=== PATIENT | male | born 1950 | race Caucasian/White ===

== ENCOUNTER 2019-11-30 15:01 | Emergency (ER) | payer OTHER ==
[2019-11-30 15:16] VITALS: BP 133/66; PULSE 88
[2019-11-30] MEDS ORDERED: Methocarbamol 500 MG Tab ONE (15:35)
[2019-11-30] MEDS ORDERED: Thiamine 200 MG/2 ML MDV ONE (15:36)
[2019-11-30] MEDS ORDERED: Acetaminophen 325 MG Tab ONE (15:39)
[2019-11-30] MEDS ORDERED: Ibuprofen 600 MG Tab ONE (15:40)
[2019-11-30] MEDS ORDERED: Triamcinolone Acetonide 40 MG/ML 1 ML MDV ONE (15:42)
[2019-11-30] MEDS ORDERED: Methocarbamol 500 MG Tab PO ONE (15:48)
--- NOTE | 2019-11-30 15:51 | EDM.PDOC ---
ED HPI GENERAL MEDICAL PROBLEM - General Chief Complaint: Upper Extremity Injury/Pain Stated Complaint: RIGHT SHOULDER PAIN Time Seen by Provider: 11/30/19 15:21 Source of Information: Reports: Patient, RN - History of Present Illness INITIAL COMMENTS - FREE TEXT/NARRATIVE: Samir presents to the emergency department today for evaluation of chronic right shoulder discomfort. He states that reaching out and AB duct to get against any sort of resistance, causes him a lot of pain. He has had this for a number of years. He denies any recent injury. He mainly came in for an x-ray , and is requesting that this be sent to his primary which is the [place]. He adamantly denies any exertional basis to his symptoms. He was hoping to get a cortisone injection, because he had had one before and this worked quite well for him. He denies any recent head trauma, neck pain, change in motor strength or apparent sensation of his entire right upper extremity. He has no fevers or other joint involvement at this time. Right Shoulder Pain Score (Numeric/FACES): 5 - Related Data Allergies Allergy/AdvReac Type Severity Reaction Status Date / Time No Known Allergies Allergy Verified 02/02/16 18:39 Home Meds: Home Meds Clopidogrel Bisulfate [Plavix] 75 mg PO BEDTIME 02/03/16 [History] Diclofenac Sodium [IJD: Diclofenac Sodium] 75 mg PO BID 02/03/16 [History] Docusate Sodium/Sennosides [Senna Plus] 1 each PO BID 02/03/16 [History] Ezetimibe [Zetia] 10 mg PO DAILY 02/03/16 [History] Ferrous Sulfate 325 mg PO DAILY 02/03/16 [History] Fish Oil/[place]-3 Fatty Acids [Fish Oil] 1 each PO BID 02/03/16 [History] Metoprolol Succinate 25 mg PO DAILY 02/03/16 [History] Nitroglycerin [Nitrostat] 0.4 mg SL ASDIRECTED PRN 02/03/16 [History] Omeprazole 20 mg PO BID 02/03/16 [History] Terazosin HCl [Terazosin] 2 mg PO BEDTIME 02/03/16 [History] atorvaSTATin Calcium [Atorvastatin Calcium] 80 mg PO BEDTIME 02/03/16 [History] hydrALAZINE HCl [Hydralazine HCl] 20 mg PO TID 02/03/16 [History] traZODone HCl [Trazodone HCl] 400 mg PO BEDTIME 02/03/16 [History] Past Medical History HEENT History: Reports: Impaired Vision Cardiovascular History: Reports: Bypass, High Cholesterol, Hypertension Genitourinary History: Reports: Prostate Disorder Musculoskeletal History: Reports: Osteoarthritis Hematologic History: Reports: Anemia - Infectious Disease History Infectious Disease History: Reports: Chicken Pox - Past Surgical History GI Surgical History: Reports: Appendectomy Social & Family History - Family History Family Medical History: Noncontributory Review of Systems - Review of Systems Review Of Systems: Comprehensive ROS is negative, except as noted in HPI. ED EXAM, GENERAL - Physical Exam Exam: See Below General Appearance: Alert, WD/WN, No Apparent Distress Eye Exam: Bilateral Eye: EOMI, Normal Inspection Nose: Normal Inspection Head: Atraumatic, Normocephalic Neck: Normal Inspection, Supple, Non-Tender, Full Range of Motion Respiratory/Chest: No Respiratory Distress, Lungs Clear, Normal Breath Sounds Cardiovascular: Regular Rate, Rhythm, No Gallop, No Murmur, No Rub GI/Abdominal: Normal Bowel Sounds, Soft, Non-Tender Back Exam: Normal Inspection, Muscle Spasm (right trapezius without any nuchal signs at all.). No: CVA Tenderness (R), CVA Tenderness (L) Extremities: Normal Inspection, Normal Range of Motion, Limited Range of Motion (On an active basis, he is noted to brace himself with his right shoulder AB ducted. I palpated the entire shoulder girdle, and there did not appear to be any underlying bony tenderness apparent. After obtaining consent, he was provided with a subacromial injection in the usual fashion under sterile precautions.) Course - Vital Signs Last Recorded V/S: Last Vital Signs Temp 98 F 11/30/19 16:57 Pulse 88 11/30/19 15:06 Resp 18 11/30/19 15:06 BP 133/66 11/30/19 15:06 Pulse Ox 98 11/30/19 15:06 - Orders/Labs/Meds Orders: Active Orders 24 hr Category Date Time Status Cooling Warming Measures [RC] ASDIRECTED Care 11/30/19 16:22 Active EKG Documentation Completion [RC] ASDIRECTED Care 11/30/19 15:59 Active EKG Documentation Completion [RC] ASDIRECTED Care 11/30/19 17:32 Ordered Immobilizer [RC] ASDIRECTED Care 11/30/19 16:22 Active Shoulder Comp Rt [CR] Stat Exams 11/30/19 16:47 Taken Ice Pack [Ice Therapy] [OM.PC] Routine Oth 11/30/19 16:22 Ordered EKG 12 Lead [EK] Routine Ther 11/30/19 15:58 Ordered EKG 12 Lead [EK] Stat Ther 11/30/19 17:32 Ordered Labs: Laboratory Tests 11/30/19 11/30/19 11/30/19 Range/Units 15:53 15:53 15:54 WBC 6.4 (4.0-11.0) K/uL RBC 3.92 L (4.50-6.50) M/uL Hgb 13.0 (13.0-18.0) g/dL Hct 38.2 L (40.0-54.0) % MCV 97 H (76-96) fL MCH 33.2 H (27.0-32.0) pg MCHC 34.0 (31.0-35.0) g/dL RDW 12.3 (11.0-16.0) % Plt Count 156 (150-400) K/uL MPV 10.5 H (6.0-10.0) fL Neut % (Auto) 51.1 (45.0-70.0) % Lymph % (Auto) 35.3 (20.0-40.0) % [place] % (Auto) 10.0 (3.0-10.0) % Eos % (Auto) 3.3 (1.0-5.0) % Baso % (Auto) 0.3 (0.0-0.5) % Neut # (Auto) 3.27 (2.00-7.50) K/uL Lymph # (Auto) 2.26 (1.50-4.00) K/uL [place] # (Auto) 0.64 (0.20-0.80) K/uL Eos # (Auto) 0.21 (0.04-0.40) K/uL Baso # (Auto) 0.02 (0.02-0.10) K/uL Sodium 143 (136-145) mmol/L Potassium 4.1 (3.5-5.1) mmol/L Chloride 105 (98-107) mmol/L Carbon Dioxide 27.6 (21.0-32.0) mmol/L Anion Gap 14.5 (5.0-15.0) mmol/L BUN 12 D (8-26) mg/dL Creatinine 0.96 D (0.70-1.30) mg/dL Est Cr Clr Drug Dosing 76.98 mL/min Estimated GFR (MDRD) > 60 (>60) MLS/MIN BUN/Creatinine Ratio 12.5 (6-25) Glucose 101 H (74-100) mg/dL Hemoglobin A1c (< 5.7) % Calcium 9.0 (8.5-10.1) mg/dL Troponin I 0.142 H* (0.000-0.060) ng/mL B-Natriuretic Peptide 590 H (0-125) pg/mL 11/30/19 11/30/19 Range/Units 15:54 18:06 WBC (4.0-11.0) K/uL RBC (4.50-6.50) M/uL Hgb (13.0-18.0) g/dL Hct (40.0-54.0) % MCV (76-96) fL MCH (27.0-32.0) pg MCHC (31.0-35.0) g/dL RDW (11.0-16.0) % Plt Count (150-400) K/uL MPV (6.0-10.0) fL Neut % (Auto) (45.0-70.0) % Lymph % (Auto) (20.0-40.0) % [place] % (Auto) (3.0-10.0) % Eos % (Auto) (1.0-5.0) % Baso % (Auto) (0.0-0.5) % Neut # (Auto) (2.00-7.50) K/uL Lymph # (Auto) (1.50-4.00) K/uL [place] # (Auto) (0.20-0.80) K/uL Eos # (Auto) (0.04-0.40) K/uL Baso # (Auto) (0.02-0.10) K/uL Sodium (136-145) mmol/L Potassium (3.5-5.1) mmol/L Chloride (98-107) mmol/L Carbon Dioxide (21.0-32.0) mmol/L Anion Gap (5.0-15.0) mmol/L BUN (8-26) mg/dL Creatinine (0.70-1.30) mg/dL Est Cr Clr Drug Dosing mL/min Estimated GFR (MDRD) (>60) MLS/MIN BUN/Creatinine Ratio (6-25) Glucose (74-100) mg/dL Hemoglobin A1c 5.9 H (< 5.7) % Calcium (8.5-10.1) mg/dL Troponin I 0.140 H* (0.000-0.060) ng/mL B-Natriuretic Peptide (0-125) pg/mL Meds: Medications Discontinued Medications Generic Name Dose Route Start Last Admin Trade Name Freq PRN Reason Stop Dose Admin Acetaminophen Confirm 11/30/19 15:39 11/30/19 15:56 Tylenol Administered 11/30/19 15:40 Not Given Dose 650 mg .ROUTE .STK-MED ONE Acetaminophen 650 mg 11/30/19 15:52 11/30/19 15:58 Tylenol PO 11/30/19 15:53 650 mg NOW ONE Administration Aspirin 162 mg 11/30/19 17:30 11/30/19 15:52 Halfprin PO 11/30/19 17:31 162 mg ONETIME ONE Administration Bupivacaine HCl 9 ml 11/30/19 15:59 11/30/19 18:00 Sensorcaine-Mpf 0.5% INJECT 11/30/19 16:00 9 ml ONETIME ONE Administration Ibuprofen Confirm 11/30/19 15:40 11/30/19 15:56 Motrin Administered 11/30/19 15:41 Not Given Dose 600 mg .ROUTE .STK-MED ONE Ibuprofen 600 mg 11/30/19 15:52 11/30/19 15:57 Motrin PO 11/30/19 15:53 600 mg ONETIME ONE Administration Lidocaine Confirm 11/30/19 17:04 11/30/19 17:37 Lidoderm 5% Administered 11/30/19 17:05 Not Given Dose 1,400 mg .ROUTE .STK-MED ONE Methocarbamol Confirm 11/30/19 15:35 11/30/19 15:56 Robaxin Administered 11/30/19 15:36 Not Given Dose 500 mg .ROUTE .STK-MED ONE Methocarbamol 500 mg 11/30/19 15:48 11/30/19 15:58 Robaxin PO 11/30/19 15:49 500 mg ONETIME ONE Administration Thiamine HCl Confirm 11/30/19 15:36 11/30/19 15:48 Vitamin B-1 Administered 11/30/19 15:37 Not Given Dose 200 mg .ROUTE .STK-MED ONE Triamcinolone Acetonide Confirm 11/30/19 15:42 11/30/19 15:56 Kenalog-40 Administered 11/30/19 15:43 Not Given Dose 40 mg .ROUTE .STK-MED ONE Triamcinolone Acetonide 40 mg 11/30/19 15:59 11/30/19 18:00 Kenalog-40 INJECT 11/30/19 16:00 40 mg ONETIME ONE Administration Departure - Departure Time of Disposition: 15:50 Disposition: Home, Self-Care 01 Condition: Good Clinical Impression: Right shoulder pain - Discharge Information Instructions: Shoulder Pain, [id number] Referrals: PCP,None [Primary Care Provider] - Forms: ED Department Discharge Care Plan Goals: Wear immobilizer to right arm as needed for comfort. OT to evaluate and treat as needed. Alternate taking Tylenol and Ibuprofen every 4 hours as needed for pain. May take Robaxin twice daily for pain. Ice packs every hour for 20 minutes as needed. Sepsis Event Note - Evaluation Sepsis Screening Result: No Definite Risk - Focused Exam Vital Signs: Vital Signs Temp Temp Pulse Resp BP Pulse Ox 11/30/19 16:57 98 F 11/30/19 15:06 98.2 F 88 18 133/66 98 Date Exam was Performed: 11/30/19 Time Exam was Performed: 18:35 - My Orders Last 24 Hours: My Active Orders 11/30/19 15:58 EKG 12 Lead [EK] Routine 11/30/19 15:59 EKG Documentation Completion [RC] ASDIRECTED 11/30/19 16:22 Cooling Warming Measures [RC] ASDIRECTED Immobilizer [RC] ASDIRECTED Ice Pack [Ice Therapy] [OM.PC] Routine 11/30/19 16:47 Shoulder Comp Rt [CR] Stat 11/30/19 17:32 EKG Documentation Completion [RC] ASDIRECTED EKG 12 Lead [EK] Stat - Assessment/Plan Last 24 Hours: My Active Orders 11/30/19 15:58 EKG 12 Lead [EK] Routine 11/30/19 15:59 EKG Documentation Completion [RC] ASDIRECTED 11/30/19 16:22 Cooling Warming Measures [RC] ASDIRECTED Immobilizer [RC] ASDIRECTED Ice Pack [Ice Therapy] [OM.PC] Routine 11/30/19 16:47 Shoulder Comp Rt [CR] Stat 11/30/19 17:32 EKG Documentation Completion [RC] ASDIRECTED EKG 12 Lead [EK] Stat
[2019-11-30] MEDS ORDERED: Acetaminophen 325 MG Tab PO ONE (15:52)
[2019-11-30] MEDS ORDERED: Ibuprofen 600 MG Tab PO ONE (15:52)
[2019-11-30] MEDS ORDERED: Bupivacaine 0.5% 10 ML SDV INJECT ONE (15:59)
[2019-11-30] MEDS ORDERED: Triamcinolone Acetonide 40 MG/ML 1 ML MDV INJECT ONE (15:59)
[2019-11-30 16:27] LABS: HEMOGLOBIN A1C 5.9 % (< 5.7)
[2019-11-30] MEDS ORDERED: Lidocaine 5% 700 MG Patch ONE (17:04)
[2019-11-30] MEDS ORDERED: Aspirin 81 MG Tab.EC PO ONE (17:30)
--- NOTE | 2019-12-01 07:30 | CR ---
DATE OF SERVICE: 11/30/19 CLINICAL DATA: pain RIGHT SHOULDER: No priors. There are osteoarthritic changes of the AC joint. No acute fracture or dislocation. No lytic or blastic bone lesions. [id number] MTDD
== END 2019-11-30 18:48 | disposition home or self-care (01) ==
LOC: LB.ED 15:01
DX: M25.511 Pain in right shoulder (principal); E78.00 Pure hypercholesterolemia, unspecified; I10 Essential (primary) hypertension; Z79.899 Other long term (current) drug therapy; D64.9 Anemia, unspecified; Z79.02 Long term (current) use of antithrombotics/antiplatelets
CPT/HCPCS: 36415; 73030-RT; 80048; 83036; 83880; 84484; 85025; 93005; 99283; 99284-25; A9270-GY; J3301; J3490

== ENCOUNTER 2020-09-12 16:20 | Emergency (ER) | payer OTHER ==
[2020-09-12 16:26] VITALS: BP 124/75; PULSE 87
[2020-09-12] MEDS ORDERED: Acetaminophen 325 MG Tab PO ONE (16:37)
--- NOTE | 2020-09-12 16:43 | EDM.PDOC ---
ED HPI GENERAL MEDICAL PROBLEM - General Stated Complaint: INJURY TO WRIST Time Seen by Provider: 09/12/20 16:30 Source of Information: Reports: Patient History Limitations: Reports: No Limitations - History of Present Illness INITIAL COMMENTS - FREE TEXT/NARRATIVE: 70 year old male with PMH of CABG, GERD, HTN, presents to ED after a mechanical fall on the ice. He denies any head injury or any other injury. CMS +. Denies cough, fever, SOB, CP, numbness or tingling. . Onset: Today Improves with: Reports: None Worsens with: Reports: Movement Associated Symptoms: Reports: No Other Symptoms Left Wrist Pain Score (Numeric/FACES): 6 - Related Data Allergies Allergy/AdvReac Type Severity Reaction Status Date / Time No Known Allergies Allergy Verified 09/12/20 16:29 Home Meds: Home Meds Clopidogrel Bisulfate [Plavix] 75 mg PO BEDTIME 02/03/16 [History] Diclofenac Sodium [IJD: Diclofenac Sodium] 75 mg PO BID 02/03/16 [History] Docusate Sodium/Sennosides [Senna Plus] 1 each PO BID 02/03/16 [History] Ezetimibe [Zetia] 10 mg PO DAILY 02/03/16 [History] Ferrous Sulfate 325 mg PO DAILY 02/03/16 [History] Fish Oil/[place]-3 Fatty Acids [Fish Oil] 1 each PO BID 02/03/16 [History] Metoprolol Succinate 25 mg PO DAILY 02/03/16 [History] Nitroglycerin [Nitrostat] 0.4 mg SL ASDIRECTED PRN 02/03/16 [History] Omeprazole 20 mg PO BID 02/03/16 [History] Terazosin HCl [Terazosin] 2 mg PO BEDTIME 02/03/16 [History] atorvaSTATin Calcium [Atorvastatin Calcium] 80 mg PO BEDTIME 02/03/16 [History] hydrALAZINE HCl [Hydralazine HCl] 20 mg PO TID 02/03/16 [History] traZODone HCl [Trazodone HCl] 400 mg PO BEDTIME 02/03/16 [History] Past Medical History HEENT History: Reports: Impaired Vision Cardiovascular History: Reports: Bypass, High Cholesterol, Hypertension Genitourinary History: Reports: Prostate Disorder Musculoskeletal History: Reports: Osteoarthritis Hematologic History: Reports: Anemia - Infectious Disease History Infectious Disease History: Reports: Chicken Pox - Past Surgical History GI Surgical History: Reports: Appendectomy Social & Family History - Family History Family Medical History: No Pertinent Family History - Caffeine Use Caffeine Use: Reports: Coffee, Soda Review of Systems - Review of Systems Review Of Systems: See Below Constitutional: Reports: No Symptoms Eyes: Reports: No Symptoms Ears: Reports: No Symptoms Nose: Reports: No Symptoms Mouth/Throat: Reports: No Symptoms Respiratory: Reports: No Symptoms Cardiovascular: Reports: No Symptoms GI/Abdominal: Reports: No Symptoms Genitourinary: Reports: No Symptoms Musculoskeletal: Reports: Arm Pain Skin: Reports: No Symptoms Neurological: Reports: No Symptoms Psychiatric: Reports: No Symptoms ED EXAM, GENERAL - Physical Exam Exam: See Below Exam Limited By: No Limitations General Appearance: Alert, Mild Distress Ears: Normal External Exam Head: Atraumatic Neck: Normal Inspection, Full Range of Motion Respiratory/Chest: No Respiratory Distress Cardiovascular: Regular Rate, Rhythm Peripheral Pulses: 3+: Radial (L), Radial (R) GI/Abdominal: Non-Tender (Male) Exam: Deferred Rectal (Males) Exam: Deferred Back Exam: Full Range of Motion Extremities: Normal Capillary Refill, Joint Swelling, Arm Pain, Limited Range of Motion (left wrist) Neurological: Alert, Oriented, Normal Cognition, Normal Gait, No Motor/Sensory Deficits Psychiatric: Normal Affect, Normal Mood Skin Exam: Warm, Dry, Intact Lymphatic: No Adenopathy Course - Vital Signs Last Recorded V/S: Last Vital Signs Temp 96.8 F L 09/12/20 16:25 Pulse 87 09/12/20 16:25 Resp 16 09/12/20 16:25 BP 124/75 09/12/20 16:25 Pulse Ox 95 09/12/20 16:25 - Orders/Labs/Meds Orders: Active Orders 24 hr Category Date Time Status Wrist Comp Min 3V Lt [CR] Stat Exams 09/12/20 16:37 Taken Meds: Medications Discontinued Medications Generic Name Dose Route Start Last Admin Trade Name Freq PRN Reason Stop Dose Admin Acetaminophen 650 mg 09/12/20 16:37 09/12/20 16:39 Tylenol PO 09/12/20 16:38 650 mg NOW ONE Administration Acetaminophen Confirm 09/12/20 16:49 09/12/20 16:43 Tylenol Administered 09/12/20 16:50 Not Given Dose 650 mg .ROUTE .STK-MED ONE Departure - Departure Time of Disposition: 17:17 Disposition: 20 Clinical Impression: Wrist fracture, left Qualifiers: Encounter type: initial encounter Fracture type: closed Qualified Code(s): S62.102A - Fracture of unspecified carpal bone, left wrist, initial encounter for closed fracture Fracture of radius Qualifiers: Encounter type: initial encounter Radius location: distal Fracture type: closed Fracture morphology: other fracture Laterality: left Qualified Code(s): S52.592A - Other fractures of lower end of left radius, initial encounter for closed fracture - Discharge Information *PRESCRIPTION DRUG MONITORING PROGRAM REVIEWED*: Not Applicable *COPY OF PRESCRIPTION DRUG MONITORING REPORT IN PATIENT SEVERIANO: Not Applicable Instructions: Wrist Fracture Treated With Immobilization, [id number] Referrals: PCP,None [Primary Care Provider] - Additional Instructions: Call the clinic in the morning to set up an ortho appointment within the next 4- 5 days. Use ice and elevate, keep the splint on until you follow up. Take tylenol at home for the pain as needed. Return to ED for any numbness, increased pain or any other concerning symptoms. Sepsis Event Note (ED) - Evaluation Sepsis Screening Result: No Definite Risk - Focused Exam Vital Signs: Vital Signs Temp Pulse Resp BP Pulse Ox 09/12/20 16:25 96.8 F L 87 16 124/75 95 09/12/20 16:20 87 16 124/75 95 - My Orders Last 24 Hours: My Active Orders 09/12/20 16:37 Wrist Comp Min 3V Lt [CR] Stat - Assessment/Plan Last 24 Hours: My Active Orders 09/12/20 16:37 Wrist Comp Min 3V Lt [CR] Stat
[2020-09-12] MEDS ORDERED: Acetaminophen 325 MG Tab ONE (16:49)
--- NOTE | 2020-09-13 08:22 | CR ---
Date of Service: 09/12/20 Clinical Data: fall LEFT WRIST: There is a faint lucency through the distal radial metaphysis suspicious for a fracture. No other fractures. There are mild osteoarthritic changes involving multiple joints. There is a 6 mm linear radiodense foreign body in the soft tissues ventral to the proximal third metacarpal. No other significant findings. [id number] [facility]
== END 2020-09-12 17:28 | disposition home or self-care (01) ==
LOC: LB.ED 16:20
DX: S52.592A Other fractures of lower end of left radius, initial encounter for closed fracture (principal); E78.00 Pure hypercholesterolemia, unspecified; I10 Essential (primary) hypertension; K21.9 Gastro-esophageal reflux disease without esophagitis; D64.9 Anemia, unspecified; Z95.1 Presence of aortocoronary bypass graft; Z79.899 Other long term (current) drug therapy; Z79.02 Long term (current) use of antithrombotics/antiplatelets; W00.0XXA Fall on same level due to ice and snow, initial encounter
CPT/HCPCS: 73110-LT; 99283; 99283-25; A9270-GY

== ENCOUNTER 2020-10-06 11:18 | Emergency (ER) | payer OTHER ==
--- NOTE | 2020-10-06 11:33 | EDM.PDOC ---
ED HPI GENERAL MEDICAL PROBLEM - General Stated Complaint: BURNING ON URINATION / FREQUENCY Time Seen by Provider: 10/06/20 11:20 Source of Information: Reports: Patient History Limitations: Reports: No Limitations - History of Present Illness INITIAL COMMENTS - FREE TEXT/NARRATIVE: Mr. Dean is a 70 YO male with a history of BPH, HTN, hypercholesterolemia. He presents to the ED with urinary burning, frequency and urgency. Symptoms for one day. He has not taken anything for the pain. His urine is concentrated with pus noted. He has no fever, Abd pain, N, V or D. No chest pain. Lungs are CTA. Normal HRR. Onset: Today Onset Date: 10/05/20 Duration: Day(s): Quality: Reports: Ache, Burning Severity: Moderate Improves with: Reports: None Worsens with: Reports: None Associated Symptoms: Reports: No Other Symptoms - Related Data Allergies Allergy/AdvReac Type Severity Reaction Status Date / Time No Known Allergies Allergy Verified 09/12/20 16:29 Home Meds: Home Meds Clopidogrel Bisulfate [Plavix] 75 mg PO BEDTIME 02/03/16 [History] Diclofenac Sodium [IJD: Diclofenac Sodium] 75 mg PO BID 02/03/16 [History] Docusate Sodium/Sennosides [Senna Plus] 1 each PO BID 02/03/16 [History] Ezetimibe [Zetia] 10 mg PO DAILY 02/03/16 [History] Ferrous Sulfate 325 mg PO DAILY 02/03/16 [History] Fish Oil/[place]-3 Fatty Acids [Fish Oil] 1 each PO BID 02/03/16 [History] Metoprolol Succinate 25 mg PO DAILY 02/03/16 [History] Nitroglycerin [Nitrostat] 0.4 mg SL ASDIRECTED PRN 02/03/16 [History] Omeprazole 20 mg PO BID 02/03/16 [History] Terazosin HCl [Terazosin] 2 mg PO BEDTIME 02/03/16 [History] atorvaSTATin Calcium [Atorvastatin Calcium] 80 mg PO BEDTIME 02/03/16 [History] hydrALAZINE HCl [Hydralazine HCl] 20 mg PO TID 02/03/16 [History] traZODone HCl [Trazodone HCl] 400 mg PO BEDTIME 02/03/16 [History] Past Medical History HEENT History: Reports: Impaired Vision Cardiovascular History: Reports: Bypass, High Cholesterol, Hypertension Genitourinary History: Reports: Prostate Disorder Musculoskeletal History: Reports: Osteoarthritis Hematologic History: Reports: Anemia - Infectious Disease History Infectious Disease History: Reports: Chicken Pox - Past Surgical History GI Surgical History: Reports: Appendectomy Social & Family History - Family History Family Medical History: No Pertinent Family History - Caffeine Use Caffeine Use: Reports: Coffee ED ROS GENERAL - Review of Systems Review Of Systems: Comprehensive ROS is negative, except as noted in HPI. : Reports: Dysuria, Frequency, Hematuria, Urgency ED EXAM, GI/ABD - Physical Exam Exam: See Below Exam Limited By: No Limitations General Appearance: Alert, WD/WN, No Apparent Distress Ears: Normal External Exam Nose: Normal Inspection, Normal Mucosa Throat/Mouth: Normal Inspection, Normal Lips Head: Atraumatic, Normocephalic Neck: Normal Inspection, Supple, Non-Tender Respiratory/Chest: No Respiratory Distress, Lungs Clear, Normal Breath Sounds Cardiovascular: Normal Peripheral Pulses, Regular Rate, Rhythm, No Edema GI/Abdominal Exam: Normal Bowel Sounds, Soft, Non-Tender Back Exam: Normal Inspection Extremities: Normal Inspection, Normal Range of Motion, Non-Tender Neurological: Alert, Oriented, CN II-XII Intact Psychiatric: Normal Affect, Normal Mood Skin Exam: Warm, Dry, Intact, Normal Color Lymphatic: No Adenopathy Course - Vital Signs Last Recorded V/S: Last Vital Signs Temp 35.9 C L 10/06/20 11:30 Pulse 72 10/06/20 11:30 Resp 18 10/06/20 11:30 BP 103/65 10/06/20 11:30 Pulse Ox 100 10/06/20 11:30 - Orders/Labs/Meds Orders: Active Orders 24 hr Category Date Time Status CULTURE URINE [RM] Stat Lab 10/06/20 11:50 Received Labs: Laboratory Tests 10/06/20 10/06/20 10/06/20 Range/Units 11:50 11:50 12:00 WBC 11.4 H D (4.0-11.0) K/uL RBC 4.09 L (4.50-6.50) M/uL Hgb 13.4 (13.0-18.0) g/dL Hct 39.8 L (40.0-54.0) % MCV 97 H (76-96) fL MCH 32.8 H (27.0-32.0) pg MCHC 33.7 (31.0-35.0) g/dL RDW 13.0 (11.0-16.0) % Plt Count 215 D (150-400) K/uL MPV 10.8 H (6.0-10.0) fL Neut % (Auto) 71.1 H (45.0-70.0) % Lymph % (Auto) 18.9 L (20.0-40.0) % [place] % (Auto) 7.9 (3.0-10.0) % Eos % (Auto) 1.7 (1.0-5.0) % Baso % (Auto) 0.4 (0.0-0.5) % Neut # (Auto) 8.09 H (2.00-7.50) K/uL Lymph # (Auto) 2.15 (1.50-4.00) K/uL [place] # (Auto) 0.90 H (0.20-0.80) K/uL Eos # (Auto) 0.19 (0.04-0.40) K/uL Baso # (Auto) 0.05 (0.02-0.10) K/uL Sodium 143 (136-145) mmol/L Potassium 3.6 (3.5-5.1) mmol/L Chloride 107 (98-107) mmol/L Carbon Dioxide 28.1 (21.0-32.0) mmol/L Anion Gap 11.5 (5.0-15.0) mmol/L BUN 13 (8-26) mg/dL Creatinine 1.12 (0.70-1.30) mg/dL Est Cr Clr Drug Dosing TNP Estimated GFR (MDRD) > 60 (>60) MLS/MIN BUN/Creatinine Ratio 11.6 (6-25) Glucose 110 H (74-100) mg/dL Calcium 8.9 (8.5-10.1) mg/dL Total Bilirubin 0.5 (0.0-1.0) mg/dL AST 19 (15-37) U/L ALT 25 (12-78) U/L Alkaline Phosphatase 85 (46-116) U/L Total Protein 7.1 (6.4-8.2) g/dL Albumin 3.4 (3.4-5.0) g/dL Globulin 3.7 (2.2-4.2) g/dL Albumin/Globulin Ratio 0.9 (0.8-2.0) Urine Color Yellow Urine Appearance Cloudy (CLEAR) Urine pH 5.0 (5.0-8.0) Ur Specific [employer] [place] >= 1.030 (1.003-1.030) Urine Protein Negative (NEGATIVE) mg/dL Urine Glucose (UA) Negative (NEGATIVE) mg/dL Urine Ketones 15 H (NEGATIVE) mg/dL Urine Occult Blood Large H (NEGATIVE) Urine Nitrite Negative (NEGATIVE) Urine Bilirubin Small H (NEGATIVE) Urine Urobilinogen 0.2 (0.2-1.0) E.U./dL Ur Leukocyte Esterase Large H (NEGATIVE) Urine RBC >100 H /HPF Urine WBC 5-10 H /HPF Urine Bacteria Few /HPF Meds: Medications Discontinued Medications Generic Name Dose Route Start Last Admin Trade Name Freq PRN Reason Stop Dose Admin Azithromycin 1,000 mg/ Sodium 500 mls @ 500 mls/hr 10/06/20 12:01 Chloride IV 10/06/20 13:00 ONETIME ONE Azithromycin 1,000 mg/ Sodium 250 mls @ 250 mls/hr 10/06/20 12:12 10/06/20 12:20 Chloride IV 10/06/20 13:00 250 mls/hr ONETIME ONE Administration Sodium Chloride 1,000 mls @ 999 mls/hr 10/06/20 11:55 10/06/20 11:55 Normal Saline IV 10/06/20 12:55 999 mls/hr .BOLUS ONE Administration Phenazopyridine HCl 200 mg 10/06/20 11:54 10/06/20 12:10 Phenazopyridine 100 Mg Tab PO 10/06/20 11:55 200 mg ONETIME ONE Administration Departure - Departure Time of Disposition: 14:40 Disposition: Home, Self-Care 01 Condition: Good Clinical Impression: UTI (urinary tract infection), bacterial, Urethritis, nonspecific - Discharge Information *PRESCRIPTION DRUG MONITORING PROGRAM REVIEWED*: Not Applicable Instructions: Urethritis, Adult, Urinary Tract Infection, Adult, [id number] Referrals: PCP,None [Primary Care Provider] - Additional Instructions: Increase Fluid intake. Decrease caffeine and soda intake. No spicy foods. Take medications as prescribed. Return to clinic or ED for new or worsening symptoms. Sepsis Event Note (ED) - Focused Exam Vital Signs: Vital Signs Temp Pulse Resp BP Pulse Ox 10/06/20 11:30 35.9 C L 72 18 103/65 100 - My Orders Last 24 Hours: My Active Orders 10/06/20 11:50 CULTURE URINE [RM] Stat - Assessment/Plan Last 24 Hours: My Active Orders 10/06/20 11:50 CULTURE URINE [RM] Stat Assessment:: Acute urethritis Plan: IV Abx in the ED. Home adjunct treatment.
[2020-10-06] MEDS ORDERED: Phenazopyridine 100 MG Tab PO ONE (11:54)
[2020-10-06] MEDS ORDERED: Sodium Chloride 0.9% 1,000 ML IV ONE (11:55)
[2020-10-06] MEDS ORDERED: Azithromycin 1,000 MG in Sodium Chloride 0.9% 500 ML IV ONE (12:01)
[2020-10-06 14:09] VITALS: BP 90/48; PULSE 73
== END 2020-10-06 14:30 | disposition home or self-care (01) ==
LOC: LB.ED 11:18
DX: N39.0 Urinary tract infection, site not specified (principal); N34.2 Other urethritis; E78.00 Pure hypercholesterolemia, unspecified; I10 Essential (primary) hypertension; N42.9 Disorder of prostate, unspecified; Z79.899 Other long term (current) drug therapy; Z79.02 Long term (current) use of antithrombotics/antiplatelets
CPT/HCPCS: 36415; 80053; 81001; 85025; 87086; 87088; 96365; 96366; 99283-25; A9270-GY; J0456; J7030; J7040

== ENCOUNTER 2020-10-17 11:25 | Emergency (ER) | payer OTHER ==
[2020-10-17 11:49] VITALS: BP 125/66; PULSE 86
[2020-10-17] MEDS: cefTRIAXone 1 GM Vial ONE (12:06)
[2020-10-17] MEDS: cefTRIAXone 1 GM Vial IM ONE (12:26)
--- NOTE | 2020-10-17 13:23 | EDM.PDOC ---
ED HPI GENERAL MEDICAL PROBLEM - General Chief Complaint: General Stated Complaint: PAIN ON URINATION Time Seen by Provider: 10/17/20 11:55 Source of Information: Reports: Patient History Limitations: Reports: No Limitations - History of Present Illness INITIAL COMMENTS - FREE TEXT/NARRATIVE: This is a 70yo M here for urinary issues, hesitancy and dysuria. He notes the symptoms have been treated and resolved then recurred and this is the third time. Patient was seen in the ER once and in the clinic another time. He denies any other issues. No fever or chills. No current abdominal or flank pain. Onset: Sudden Duration: Day(s): Severity: Mild Improves with: Reports: None Worsens with: Reports: None - Related Data Allergies Allergy/AdvReac Type Severity Reaction Status Date / Time No Known Allergies Allergy Verified 09/12/20 16:29 Home Meds: Home Meds Clopidogrel Bisulfate [Plavix] 75 mg PO BEDTIME 02/03/16 [History] Diclofenac Sodium [IJD: Diclofenac Sodium] 75 mg PO BID 02/03/16 [History] Docusate Sodium/Sennosides [Senna Plus] 1 each PO BID 02/03/16 [History] Ezetimibe [Zetia] 10 mg PO DAILY 02/03/16 [History] Ferrous Sulfate 325 mg PO DAILY 02/03/16 [History] Fish Oil/[place]-3 Fatty Acids [Fish Oil] 1 each PO BID 02/03/16 [History] Metoprolol Succinate 25 mg PO DAILY 02/03/16 [History] Nitroglycerin [Nitrostat] 0.4 mg SL ASDIRECTED PRN 02/03/16 [History] Omeprazole 20 mg PO BID 02/03/16 [History] Terazosin HCl [Terazosin] 2 mg PO BEDTIME 02/03/16 [History] atorvaSTATin Calcium [Atorvastatin Calcium] 80 mg PO BEDTIME 02/03/16 [History] hydrALAZINE HCl [Hydralazine HCl] 20 mg PO TID 02/03/16 [History] traZODone HCl [Trazodone HCl] 400 mg PO BEDTIME 02/03/16 [History] Amoxicillin/Clavulanate K [Augmentin 875-125 MG] 1 tab PO BID #20 tablet 10/17/20 [Rx] Phenazopyridine HCl [Pyridium] 200 mg PO BID #10 tablet 10/17/20 [Rx] Past Medical History HEENT History: Reports: Impaired Vision Cardiovascular History: Reports: Bypass, High Cholesterol, Hypertension Genitourinary History: Reports: Prostate Disorder Musculoskeletal History: Reports: Osteoarthritis Hematologic History: Reports: Anemia - Infectious Disease History Infectious Disease History: Reports: Chicken Pox - Past Surgical History HEENT Surgical History: Reports: Cataract Surgery GI Surgical History: Reports: Appendectomy Social & Family History - Family History Family Medical History: No Pertinent Family History - Tobacco Use Tobacco Use Status *Q: Current Every Day Tobacco User Years of Tobacco use: 40 Packs/Tins Daily: 1 - Caffeine Use Caffeine Use: Reports: Coffee - Recreational Drug Use Recreational Drug Use: No ED ROS GENERAL - Review of Systems Review Of Systems: Comprehensive ROS is negative, except as noted in HPI. ED EXAM, GENERAL - Physical Exam Exam: See Below Exam Limited By: No Limitations General Appearance: Alert, WD/WN, No Apparent Distress Ears: Normal External Exam Nose: Normal Inspection Throat/Mouth: Normal Inspection Head: Atraumatic, Normocephalic Neck: Normal Inspection, Supple Respiratory/Chest: No Respiratory Distress Cardiovascular: Normal Peripheral Pulses GI/Abdominal: Normal Bowel Sounds Extremities: Normal Inspection Neurological: Alert, Oriented Course - Vital Signs Last Recorded V/S: Last Vital Signs Temp 36.5 C 10/17/20 11:47 Pulse 86 10/17/20 11:47 Resp 16 10/17/20 11:47 BP 125/66 10/17/20 11:47 Pulse Ox 99 10/17/20 11:47 - Orders/Labs/Meds Orders: Active Orders 24 hr Category Date Time Status CULTURE URINE [RM] Stat Lab 10/17/20 12:05 Received Labs: Laboratory Tests 10/17/20 10/17/20 10/17/20 Range/Units 11:45 11:45 11:45 WBC 12.6 H (4.0-11.0) K/uL RBC 4.03 L (4.50-6.50) M/uL Hgb 13.1 (13.0-18.0) g/dL Hct 39.4 L (40.0-54.0) % MCV 98 H (76-96) fL MCH 32.5 H (27.0-32.0) pg MCHC 33.2 (31.0-35.0) g/dL RDW 13.2 (11.0-16.0) % Plt Count 142 L D (150-400) K/uL MPV 11.1 H (6.0-10.0) fL Neut % (Auto) 72.6 H (45.0-70.0) % Lymph % (Auto) 18.8 L (20.0-40.0) % [place] % (Auto) 7.1 (3.0-10.0) % Eos % (Auto) 1.3 (1.0-5.0) % Baso % (Auto) 0.2 (0.0-0.5) % Neut # (Auto) 9.14 H (2.00-7.50) K/uL Lymph # (Auto) 2.37 (1.50-4.00) K/uL [place] # (Auto) 0.90 H (0.20-0.80) K/uL Eos # (Auto) 0.17 (0.04-0.40) K/uL Baso # (Auto) 0.03 (0.02-0.10) K/uL Sodium 146 H (136-145) mmol/L Potassium 3.8 (3.5-5.1) mmol/L Chloride 107 (98-107) mmol/L Carbon Dioxide 26.9 (21.0-32.0) mmol/L Anion Gap 15.9 H (5.0-15.0) mmol/L BUN 17 D (8-26) mg/dL Creatinine 1.04 (0.70-1.30) mg/dL Est Cr Clr Drug Dosing TNP Estimated GFR (MDRD) > 60 (>60) MLS/MIN BUN/Creatinine Ratio 16.3 (6-25) Glucose 112 H (74-100) mg/dL Lactic Acid 1.1 (0.4-2.0) mmol/L Calcium 9.0 (8.5-10.1) mg/dL Total Bilirubin 0.6 (0.0-1.0) mg/dL AST 19 (15-37) U/L ALT 24 (12-78) U/L Alkaline Phosphatase 81 (46-116) U/L Total Protein 7.1 (6.4-8.2) g/dL Albumin 3.5 (3.4-5.0) g/dL Globulin 3.6 (2.2-4.2) g/dL Albumin/Globulin Ratio 1.0 (0.8-2.0) Urine Color Urine Appearance (CLEAR) Urine pH (5.0-8.0) Ur Specific [place] (1.003-1.030) Urine Protein (NEGATIVE) mg/dL Urine Glucose (UA) (NEGATIVE) mg/dL Urine Ketones (NEGATIVE) mg/dL Urine Occult Blood (NEGATIVE) Urine Nitrite (NEGATIVE) Urine Bilirubin (NEGATIVE) Urine Urobilinogen (0.2-1.0) E.U./dL Ur Leukocyte Esterase (NEGATIVE) Urine RBC /HPF Urine WBC /HPF Urine WBC Clumps /HPF Ur Squamous Epith Cells /HPF Urine Bacteria /HPF 10/17/20 Range/Units 12:05 WBC (4.0-11.0) K/uL RBC (4.50-6.50) M/uL Hgb (13.0-18.0) g/dL Hct (40.0-54.0) % MCV (76-96) fL MCH (27.0-32.0) pg MCHC (31.0-35.0) g/dL RDW (11.0-16.0) % Plt Count (150-400) K/uL MPV (6.0-10.0) fL Neut % (Auto) (45.0-70.0) % Lymph % (Auto) (20.0-40.0) % [place] % (Auto) (3.0-10.0) % Eos % (Auto) (1.0-5.0) % Baso % (Auto) (0.0-0.5) % Neut # (Auto) (2.00-7.50) K/uL Lymph # (Auto) (1.50-4.00) K/uL [place] # (Auto) (0.20-0.80) K/uL Eos # (Auto) (0.04-0.40) K/uL Baso # (Auto) (0.02-0.10) K/uL Sodium (136-145) mmol/L Potassium (3.5-5.1) mmol/L Chloride (98-107) mmol/L Carbon Dioxide (21.0-32.0) mmol/L Anion Gap (5.0-15.0) mmol/L BUN (8-26) mg/dL Creatinine (0.70-1.30) mg/dL Est Cr Clr Drug Dosing Estimated GFR (MDRD) (>60) MLS/MIN BUN/Creatinine Ratio (6-25) Glucose (74-100) mg/dL Lactic Acid (0.4-2.0) mmol/L Calcium (8.5-10.1) mg/dL Total Bilirubin (0.0-1.0) mg/dL AST (15-37) U/L ALT (12-78) U/L Alkaline Phosphatase (46-116) U/L Total Protein (6.4-8.2) g/dL Albumin (3.4-5.0) g/dL Globulin (2.2-4.2) g/dL Albumin/Globulin Ratio (0.8-2.0) Urine Color Yellow Urine Appearance Cloudy (CLEAR) Urine pH 5.5 (5.0-8.0) Ur Specific [place] >= 1.030 (1.003-1.030) Urine Protein >=300 H (NEGATIVE) mg/dL Urine Glucose (UA) Negative (NEGATIVE) mg/dL Urine Ketones Trace H (NEGATIVE) mg/dL Urine Occult Blood Trace-intact H (NEGATIVE) Urine Nitrite Negative (NEGATIVE) Urine Bilirubin Negative (NEGATIVE) Urine Urobilinogen 0.2 (0.2-1.0) E.U./dL Ur Leukocyte Esterase Small H (NEGATIVE) Urine RBC 5-10 H /HPF Urine WBC 40-50 H /HPF Urine WBC Clumps Moderate /HPF Ur Squamous Epith Cells Moderate /HPF Urine Bacteria Moderate H /HPF Meds: Medications Discontinued Medications Generic Name Dose Route Start Last Admin Trade Name Freq PRN Reason Stop Dose Admin Ceftriaxone Sodium 1 gm 10/17/20 11:52 10/17/20 12:26 Ceftriaxone 1 Gm Vial IM 10/17/20 11:53 1 gm ONETIME ONE Administration Ceftriaxone Sodium Confirm 10/17/20 12:06 Ceftriaxone 1 Gm Vial Administered 10/17/20 12:07 Dose 1 gm .ROUTE .STK-MED ONE Departure - Departure Time of Disposition: 13:10 Disposition: Home, Self-Care 01 Condition: Good Clinical Impression: UTI (urinary tract infection) Qualifiers: Urinary tract infection type: acute cystitis Hematuria presence: with hematuria Qualified Code(s): N30.01 - Acute cystitis with hematuria - Discharge Information Prescriptions: Amoxicillin/Clavulanate K [Augmentin 875-125 MG] 1 tab PO BID #20 tablet Phenazopyridine HCl [Pyridium] 200 mg PO BID #10 tablet Instructions: Urinary Tract Infection, Adult Referrals: PCP,None [Primary Care Provider] - Forms: ED Department Discharge Sepsis Event Note (ED) - Evaluation Sepsis Screening Result: No Definite Risk - Focused Exam Vital Signs: Vital Signs Temp Pulse Resp BP Pulse Ox 10/17/20 11:47 36.5 C 86 16 125/66 99 - Problem List & Annotations (1) UTI (urinary tract infection) SNOMED Code(s): 81757484 Code(s): N39.0 - URINARY TRACT INFECTION, SITE NOT SPECIFIED Status: Acute Priority: High Qualifiers: Urinary tract infection type: acute cystitis Hematuria presence: with hematuria Qualified Code(s): N30.01 - Acute cystitis with hematuria - Problem List Review Problem List Initiated/Reviewed/Updated: Yes - My Orders Last 24 Hours: My Active Orders 10/17/20 12:05 CULTURE URINE [RM] Stat - Assessment/Plan Last 24 Hours: My Active Orders 10/17/20 12:05 CULTURE URINE [RM] Stat Plan: Counseled on UTI and management. Discussed close f/u and rtc as directed. Discussed f/u with Urology if symptoms/infection returns.
== END 2020-10-17 13:09 | disposition home or self-care (01) ==
LOC: LB.ED 11:25
DX: N30.01 Acute cystitis with hematuria (principal); E78.00 Pure hypercholesterolemia, unspecified; I10 Essential (primary) hypertension; D64.9 Anemia, unspecified; Z72.0 Tobacco use; Z79.02 Long term (current) use of antithrombotics/antiplatelets; Z79.899 Other long term (current) drug therapy
CPT/HCPCS: 36415; 80053; 81001; 83605; 85025; 87086; 96372; 99283; J0696

== ENCOUNTER 2020-11-17 12:41 | Emergency (ER) | payer OTHER ==
[2020-11-17 13:11] VITALS: BP 107/60; PULSE 80
--- NOTE | 2020-11-17 14:12 | EDM.PDOC ---
ED HPI GENERAL MEDICAL PROBLEM - General Chief Complaint: Genitourinary Problem Stated Complaint: KIDNEY INFECTION Time Seen by Provider: 11/17/20 12:53 Source of Information: Reports: Patient History Limitations: Reports: No Limitations - History of Present Illness INITIAL COMMENTS - FREE TEXT/NARRATIVE: This is a 70yo M here for similar concerns that he had with a prior ER visit a month ago. He notes his symptoms fully resolved with antibiotics. He denies any pain but has pressure and urgency of the lower pubic area. He denies any dysuria but notes a decreased stream. He denies any fever or chills, no shortness of breath, no flank pain, no confusion, no blood in the urine. Onset: Gradual Duration: Day(s): Location: Reports: Pelvis Quality: Reports: Pressure, Same as Previous Episode Improves with: Reports: None Worsens with: Reports: None Pelvic Pain Score (Numeric/FACES): 6 - Related Data Allergies Allergy/AdvReac Type Severity Reaction Status Date / Time No Known Allergies Allergy Verified 11/17/20 12:53 Home Meds: Home Meds Clopidogrel Bisulfate [Plavix] 75 mg PO BEDTIME 02/03/16 [History] Diclofenac Sodium [IJD: Diclofenac Sodium] 75 mg PO BID 02/03/16 [History] Docusate Sodium/Sennosides [Senna Plus] 1 each PO BID 02/03/16 [History] Ezetimibe [Zetia] 10 mg PO DAILY 02/03/16 [History] Ferrous Sulfate 325 mg PO DAILY 02/03/16 [History] Fish Oil/[place]-3 Fatty Acids [Fish Oil] 1 each PO BID 02/03/16 [History] Metoprolol Succinate 25 mg PO DAILY 02/03/16 [History] Nitroglycerin [Nitrostat] 0.4 mg SL ASDIRECTED PRN 02/03/16 [History] Omeprazole 20 mg PO BID 02/03/16 [History] Terazosin HCl [Terazosin] 2 mg PO BEDTIME 02/03/16 [History] atorvaSTATin Calcium [Atorvastatin Calcium] 80 mg PO BEDTIME 02/03/16 [History] hydrALAZINE HCl [Hydralazine HCl] 20 mg PO TID 02/03/16 [History] traZODone HCl [Trazodone HCl] 400 mg PO BEDTIME 02/03/16 [History] Amoxicillin/Clavulanate K [Augmentin 875-125 MG] 1 tab PO BID #20 tablet 10/17/20 [Rx] Phenazopyridine HCl [Pyridium] 200 mg PO BID #10 tablet 10/17/20 [Rx] Past Medical History HEENT History: Reports: Impaired Vision Cardiovascular History: Reports: Bypass, High Cholesterol, Hypertension Genitourinary History: Reports: Prostate Disorder Musculoskeletal History: Reports: Fracture, Osteoarthritis Other Musculoskeletal History: Left wrist fracture 2020 Hematologic History: Reports: Anemia - Infectious Disease History Infectious Disease History: Reports: Chicken Pox - Past Surgical History HEENT Surgical History: Reports: Cataract Surgery GI Surgical History: Reports: Appendectomy Social & Family History - Family History Family Medical History: No Pertinent Family History - Tobacco Use Tobacco Use Status *Q: Current Every Day Tobacco User Years of Tobacco use: 50 Packs/Tins Daily: 1.5 - Caffeine Use Caffeine Use: Reports: Coffee - Recreational Drug Use Recreational Drug Use: No ED ROS GENERAL - Review of Systems Review Of Systems: Comprehensive ROS is negative, except as noted in HPI. ED EXAM, RENAL/ - Physical Exam Exam: See Below Exam Limited By: No Limitations General Appearance: Alert, WD/WN, No Apparent Distress Head: Atraumatic, Normocephalic Respiratory/Chest: No Respiratory Distress Cardiovascular: Normal Peripheral Pulses (Male) Exam: Suprapubic Fullness Back Exam: Normal Inspection Extremities: Normal Inspection Neurological: Alert, Oriented, CN II-XII Intact Psychiatric: Normal Affect, Normal Mood Skin Exam: Warm, Dry, Intact Course - Vital Signs Last Recorded V/S: Last Vital Signs Temp 37.0 C 11/17/20 12:48 Pulse 80 11/17/20 12:48 Resp 16 11/17/20 12:48 BP 107/60 11/17/20 12:48 Pulse Ox 98 11/17/20 12:48 - Orders/Labs/Meds Orders: Active Orders 24 hr Category Date Time Status CULTURE URINE [RM] Stat Lab 11/17/20 12:52 Received Labs: Laboratory Tests 11/17/20 11/17/20 11/17/20 Range/Units 12:52 12:52 13:00 WBC 7.3 D (4.0-11.0) K/uL RBC 3.85 L (4.50-6.50) M/uL Hgb 12.8 L (13.0-18.0) g/dL Hct 38.0 L (40.0-54.0) % MCV 99 H (76-96) fL MCH 33.2 H (27.0-32.0) pg MCHC 33.7 (31.0-35.0) g/dL RDW 13.3 (11.0-16.0) % Plt Count 154 (150-400) K/uL MPV 11.2 H (6.0-10.0) fL Neut % (Auto) 64.7 (45.0-70.0) % Lymph % (Auto) 23.0 (20.0-40.0) % [place] % (Auto) 9.2 (3.0-10.0) % Eos % (Auto) 2.7 (1.0-5.0) % Baso % (Auto) 0.4 (0.0-0.5) % Neut # (Auto) 4.74 (2.00-7.50) K/uL Lymph # (Auto) 1.68 (1.50-4.00) K/uL [place] # (Auto) 0.67 (0.20-0.80) K/uL Eos # (Auto) 0.20 (0.04-0.40) K/uL Baso # (Auto) 0.03 (0.02-0.10) K/uL Sodium 145 (136-145) mmol/L Potassium 3.8 (3.5-5.1) mmol/L Chloride 107 (98-107) mmol/L Carbon Dioxide 27.5 (21.0-32.0) mmol/L Anion Gap 14.3 (5.0-15.0) mmol/L BUN 15 (8-26) mg/dL Creatinine 1.01 (0.70-1.30) mg/dL Est Cr Clr Drug Dosing 66.17 mL/min Estimated GFR (MDRD) > 60 (>60) MLS/MIN BUN/Creatinine Ratio 14.9 (6-25) Glucose 114 H (74-100) mg/dL Calcium 8.6 (8.5-10.1) mg/dL Urine Color Yellow Urine Appearance Cloudy (CLEAR) Urine pH 5.0 (5.0-8.0) Ur Specific [place] >= 1.030 (1.003-1.030) Urine Protein >=300 H (NEGATIVE) mg/dL Urine Glucose (UA) Negative (NEGATIVE) mg/dL Urine Ketones Trace H (NEGATIVE) mg/dL Urine Occult Blood Moderate H (NEGATIVE) Urine Nitrite Negative (NEGATIVE) Urine Bilirubin Negative (NEGATIVE) Urine Urobilinogen 1.0 (0.2-1.0) E.U./dL Ur Leukocyte Esterase Small H (NEGATIVE) Urine RBC 20-30 H /HPF Urine WBC 5-10 H /HPF Urine WBC Clumps Few /HPF Ur Squamous Epith Cells Moderate /HPF Calcium Oxalate Crystal Few /HPF Urine Bacteria Few /HPF Departure - Departure Time of Disposition: 14:15 Disposition: Home, Self-Care 01 Condition: Good Clinical Impression: UTI, Urinary tract infectious disease BPH (benign prostatic hyperplasia) Qualifiers: Lower urinary tract symptom presence: symptoms present Lower urinary tract symptom detail: urinary frequency Qualified Code(s): N40.1 - Benign prostatic hyperplasia with lower urinary tract symptoms; R35.0 - Frequency of micturition - Discharge Information Instructions: Tamsulosin capsules Referrals: PCP,None [Primary Care Provider] - Forms: ED Department Discharge Additional Instructions: Discharge home. Follow up with urology as discussed as soon as possible. Flomax and Cipro as directed. Call or return to the ER if you have any questions or concerns. Sepsis Event Note (ED) - Evaluation Sepsis Screening Result: No Definite Risk - Focused Exam Vital Signs: Vital Signs Temp Pulse Resp BP Pulse Ox 11/17/20 12:48 37.0 C 80 16 107/60 98 - Problem List & Annotations (1) BPH (benign prostatic hyperplasia) SNOMED Code(s): 448505465 Code(s): N40.0 - BENIGN PROSTATIC HYPERPLASIA WITHOUT LOWER URINRY TRACT SYMP Status: Acute Priority: High Current Visit: Yes Qualifiers: Lower urinary tract symptom presence: symptoms present Lower urinary tract symptom detail: urinary frequency Qualified Code(s): N40.1 - Benign prostatic hyperplasia with lower urinary tract symptoms; R35.0 - Frequency of micturition (2) UTI, Urinary tract infectious disease SNOMED Code(s): 14240164 Code(s): N39.0 - URINARY TRACT INFECTION, SITE NOT SPECIFIED Status: Acute Priority: High Current Visit: Yes - Problem List Review Problem List Initiated/Reviewed/Updated: Yes - My Orders Last 24 Hours: My Active Orders 11/17/20 12:52 CULTURE URINE [RM] Stat - Assessment/Plan Last 24 Hours: My Active Orders 11/17/20 12:52 CULTURE URINE [RM] Stat Plan: Counseled on antibiotics and side effects. Discussed close monitoring and f/u if symptoms persist or worsen. Discussed rtc as routine with scheduled f/[facility]. Discussed flomax use and side effects. Rtc to ER if symptoms worsen.
== END 2020-11-17 14:15 | disposition home or self-care (01) ==
LOC: LB.ED 12:41
DX: N39.0 Urinary tract infection, site not specified (principal); N40.1 Benign prostatic hyperplasia with lower urinary tract symptoms; R35.0 Frequency of micturition; E78.00 Pure hypercholesterolemia, unspecified; I10 Essential (primary) hypertension; Z95.1 Presence of aortocoronary bypass graft; Z79.02 Long term (current) use of antithrombotics/antiplatelets; Z72.0 Tobacco use; Z79.899 Other long term (current) drug therapy
CPT/HCPCS: 36415; 80048; 81001; 85025; 87086; 87088; 87186; 99283

== ENCOUNTER 2021-03-01 09:50 | Emergency (ER) | payer OTHER ==
[2021-03-01 10:12] VITALS: BP 99/55; PULSE 75
--- NOTE | 2021-03-01 10:46 | EDM.PDOC ---
ED HPI GENERAL MEDICAL PROBLEM - General Chief Complaint: General Stated Complaint: FELL LAST 02/12/21/ LEFT UPPER BACK IN PAIN Time Seen by Provider: 03/01/21 10:15 Source of Information: Reports: Patient History Limitations: Reports: No Limitations - History of Present Illness INITIAL COMMENTS - FREE TEXT/NARRATIVE: pt states approximately 3 weeks ago he fell onto his left side and has been experiencing left side rib pain since. although gradually improving, pt is concerned for left side rib fracture. he denies SOB, cough, fever, hemoptysis, chest pain at rest, left side TTP. states the pain is only exacerbated when he rolls over in bed. Treatments PULP TESTER: Reports: Acetaminophen Left Pain Score (Numeric/FACES): 6 - Related Data Allergies Allergy/AdvReac Type Severity Reaction Status Date / Time No Known Allergies Allergy Verified 11/17/20 12:53 Home Meds: Home Meds Clopidogrel Bisulfate [Plavix] 75 mg PO BEDTIME 02/03/16 [History] Diclofenac Sodium [IJD: Diclofenac Sodium] 75 mg PO BID 02/03/16 [History] Docusate Sodium/Sennosides [Senna Plus] 1 each PO BID 02/03/16 [History] Ezetimibe [Zetia] 10 mg PO DAILY 02/03/16 [History] Ferrous Sulfate 325 mg PO DAILY 02/03/16 [History] Fish Oil/[place]-3 Fatty Acids [Fish Oil] 1 each PO BID 02/03/16 [History] Metoprolol Succinate 25 mg PO DAILY 02/03/16 [History] Nitroglycerin [Nitrostat] 0.4 mg SL ASDIRECTED PRN 02/03/16 [History] Omeprazole 20 mg PO BID 02/03/16 [History] Terazosin HCl [Terazosin] 2 mg PO BEDTIME 02/03/16 [History] atorvaSTATin Calcium [Atorvastatin Calcium] 80 mg PO BEDTIME 02/03/16 [History] hydrALAZINE HCl [Hydralazine HCl] 20 mg PO TID 02/03/16 [History] traZODone HCl [Trazodone HCl] 400 mg PO BEDTIME 02/03/16 [History] Past Medical History HEENT History: Reports: Impaired Vision Cardiovascular History: Reports: Bypass, High Cholesterol, Hypertension, Stents Other Cardiovascular History: triple bypass 2005 Genitourinary History: Reports: Prostate Disorder Musculoskeletal History: Reports: Fracture, Osteoarthritis Other Musculoskeletal History: Left wrist fracture 2020 Hematologic History: Reports: Anemia - Infectious Disease History Infectious Disease History: Reports: Chicken Pox - Past Surgical History HEENT Surgical History: Reports: Cataract Surgery GI Surgical History: Reports: Appendectomy Musculoskeletal Surgical History: Reports: Other (See Below) Other Musculoskeletal Surgeries/Procedures:: hx Rt rib fx Social & Family History - Family History Family Medical History: No Pertinent Family History - Tobacco Use Years of Tobacco use: 60 Packs/Tins Daily: 2 - Caffeine Use Caffeine Use: Reports: Coffee - Recreational Drug Use Recreational Drug Use: No ED ROS GENERAL - Review of Systems Review Of Systems: Comprehensive ROS is negative, except as noted in HPI. ED EXAM, GENERAL - Physical Exam Exam: See Below Exam Limited By: No Limitations General Appearance: Alert, WD/WN, No Apparent Distress Eye Exam: Bilateral Eye: EOMI, PERRL Head: Atraumatic, Normocephalic Respiratory/Chest: No Respiratory Distress, Lungs Clear, Normal Breath Sounds, No Accessory Muscle Use, Chest Non-Tender Cardiovascular: Normal Peripheral Pulses, Regular Rate, Rhythm, No Edema, No Murmur, No Rub Peripheral Pulses: 2+: Radial (L), Radial (R) Back Exam: Normal Inspection, Full Range of Motion Extremities: Normal Inspection, Non-Tender, Normal Capillary Refill Neurological: Alert, Oriented, CN II-XII Intact, Normal Cognition, Normal Gait Skin Exam: Warm, Dry, Intact, No Rash Course - Vital Signs Last Recorded V/S: Last Vital Signs Temp 96.7 F L 03/01/21 10:07 Pulse 75 03/01/21 10:07 Resp 16 03/01/21 10:07 BP 99/55 L 03/01/21 10:07 Pulse Ox 96 03/01/21 10:07 - Orders/Labs/Meds Orders: Active Orders 24 hr Category Date Time Status CXR [Chest 2V] [CR] Stat Exams 03/01/21 10:39 Ordered - Radiology Interpretation Free Text/Narrative:: wet read CXR shows old anterior rib fractures. no noted cardiomegaly, acute fractures, pneumothorax, consolidation or acute changes. Departure - Departure Time of Disposition: 11:08 Disposition: Home, Self-Care 01 Condition: Good Clinical Impression: Rib pain on left side - Discharge Information *PRESCRIPTION DRUG MONITORING PROGRAM REVIEWED*: Not Applicable *COPY OF PRESCRIPTION DRUG MONITORING REPORT IN PATIENT SEVERIANO: Not Applicable Referrals: PCP,None [Primary Care Provider] - Additional Instructions: tylenol 1000mg four times a day as needed for rib pain symptoms should continue to improve over the next few weeks, slowly, as they have been. if you experience shortness of breath, difficulty breathing, please return to the ER for a recheck. Sepsis Event Note (ED) - Evaluation Sepsis Screening Result: No Definite Risk - Focused Exam Vital Signs: Vital Signs Temp Pulse Resp BP Pulse Ox 03/01/21 10:07 96.7 F L 75 16 99/55 L 96 - Problem List & Annotations (1) Rib pain on left side SNOMED Code(s): 814133223 Code(s): R07.81 - PLEURODYNIA Status: Acute Current Visit: Yes - Problem List Review Problem List Initiated/Reviewed/Updated: Yes - My Orders Last 24 Hours: My Active Orders 03/01/21 10:39 CXR [Chest 2V] [CR] Stat - Assessment/Plan Last 24 Hours: My Active Orders 03/01/21 10:39 CXR [Chest 2V] [CR] Stat Assessment:: assessment: left side rib pain plan: symptomatic treatment return to ER for concerning symptoms as discussed.
--- NOTE | 2021-03-01 11:54 | CR ---
DATE OF SERVICE: 03/01/2021 CLINICAL DATA: Fall, left sided rib pain PA and lateral chest: Comparison is made to a prior exam dated 09 January 2021. The patient is status post median sternotomy. The heart size is normal. There are surgical clips in the anterior mediastinum on the left. The lungs are hyperexpanded, but clear. No pneumothorax. No pleural effusions. There are multiple healed rib fractures on the left, unchanged from the prior study. There is a partial compression fracture of a midthoracic vertebrae, unchanged. No acute abnormalities. Thank you for allowing us to participate in the care of your patient. JAKE
== END 2021-03-01 11:20 | disposition home or self-care (01) ==
LOC: LB.ED 09:50
DX: R07.81 Pleurodynia (principal); E78.00 Pure hypercholesterolemia, unspecified; I10 Essential (primary) hypertension; Z72.0 Tobacco use; Z95.1 Presence of aortocoronary bypass graft; Z79.02 Long term (current) use of antithrombotics/antiplatelets; Z79.899 Other long term (current) drug therapy
CPT/HCPCS: 71046; 99283-25

== ENCOUNTER 2023-10-08 11:28 | Emergency (ER) | payer OTHER ==
[2023-10-08 12:02] LABS: BASOPHILS ABSOLUTE AUTO 0.02 K/uL (0.02-0.10); BASOPHILS PERCENT AUTO 0.2 % (0.0-0.5); EOSINOPHILS ABSOLUTE AUTO 0.13 K/uL (0.04-0.40); EOSINOPHILS PERCENT AUTO 1.6 % (1.0-5.0); HEMATOCRIT 36.5 % (40.0-54.0); HEMOGLOBIN 12.2 g/dL (13.0-18.0); LYMPHOCYTES ABSOLUTE AUTO 1.13 K/uL (1.50-4.00); LYMPHOCYTES PERCENT AUTO 13.8 % (20.0-40.0); MEAN CORPUSCULAR HEMOGLOBIN 33.1 pg (27.0-32.0); MEAN CORPUSCULAR HGB CONC 33.4 g/dL (31.0-35.0); MEAN CORPUSCULAR VOLUME 99 fL (76-96); MEAN PLATELET VOLUME 10.7 fL (6.0-10.0); MONOCYTES PERCENT AUTO 9.8 % (3.0-10.0); NEUTROPHILS ABSOLUTE AUTO 6.08 K/uL (2.00-7.50); NEUTROPHILS PERCENT AUTO 74.6 % (45.0-70.0); PLATELET COUNT,PLT 92 K/uL (150-400); RED BLOOD CELL COUNT 3.69 M/uL (4.50-6.50); RED CELL DISTRIBUTION WIDTH 12.8 % (11.0-16.0); WHITE BLOOD CELL COUNT,WBC 8.2 K/uL (4.0-11.0)
[2023-10-08 12:18] LABS: APPEARANCE,URINE CLEAR (CLEAR); BILIRUBIN,URINE SMALL (NEGATIVE); COLOR,URINE YELLOW; GLUCOSE,URINE NEGATIVE (NEGATIVE); KETONES,URINE TRACE mg/dL (NEGATIVE); LEUKOCYTE ESTERASE,URINE NEGATIVE (NEGATIVE); NITRITE,URINE NEGATIVE (NEGATIVE); OCCULT BLOOD,URINE NEGATIVE (NEGATIVE); PH,URINE 6.5 (5.0-8.0); PROTEIN,URINE 100 mg/dL (NEGATIVE)
[2023-10-08] MEDS ORDERED: Sodium Chloride 0.9% 10 ML Syringe FLUSH PRN (12:19)
[2023-10-08 12:20] LABS: A/G RATIO 0.9 (0.8-2.0); ALBUMIN 3.1 g/dL (3.4-5.0); ANION GAP 14.8 mmol/L (5.0-15.0); BILIRUBIN TOTAL 0.8 mg/dL (0.0-1.0); BUN/CREATININE RATIO 13.1 (6-25); CALCIUM 8.6 mg/dL (8.5-10.1); CARBON DIOXIDE,CO2 25.6 mmol/L (21.0-32.0); CREATININE 0.99 mg/dL (0.70-1.30); EST CRCL DRUG DOSING (CG) 62.04 mL/min; POTASSIUM,K 3.4 mmol/L (3.5-5.1); PROTEIN TOTAL,TP 6.5 g/dL (6.4-8.2)
[2023-10-08 12:22] LABS: SQUAMOUS EPITHELIAL CELLS,UR OCCASIONAL /HPF; WBC,URINE 0-5 /HPF
[2023-10-08 12:23] LABS: AMORPHOUS SEDIMENT,URINE MODERATE /HPF; CALCIUM OXALATE CRYSTALS,URINE OCCASIONAL /HPF
[2023-10-08] MEDS: Sodium Chloride 0.9% 500 ML IV ONE (12:28)
[2023-10-08] MEDS: Potassium Chloride 10 MEQ Tab.ER PO ONE (12:36)
[2023-10-08] MEDS: Ketorolac 30 MG/ML SDV IM ONE (13:46)
[2023-10-08] MEDS: Ketorolac 60 MG/2 ML SDV IVPUSH ONE (13:47)
[2023-10-08 16:33] VITALS: BP 109/48; PULSE 79
[2023-10-09] MEDS: Ketorolac 30 MG/ML SDV ONE (13:30)
== END 2023-10-08 13:50 | disposition home or self-care (01) ==
LOC: LB.ED 11:28
DX: M25.522 Pain in left elbow (principal); E87.6 Hypokalemia; E86.0 Dehydration; I10 Essential (primary) hypertension; E78.00 Pure hypercholesterolemia, unspecified; F17.210 Nicotine dependence, cigarettes, uncomplicated; Z79.899 Other long term (current) drug therapy; Z90.49 Acquired absence of other specified parts of digestive tract
CPT/HCPCS: 36415; 71046; 73502-LT; 80053; 81001; 85025; 96372; 99283; 99284; A9270-GY; J1885; J7040

== ENCOUNTER 2024-09-08 13:04 | Emergency (ER) | payer OTHER ==
[2024-09-08 13:40] VITALS: PULSE 99
[2024-09-08 14:18] LABS: BASOPHILS ABSOLUTE AUTO 0.01 K/uL (0.02-0.10); BASOPHILS PERCENT AUTO 0.2 % (0.0-0.5); EOSINOPHILS ABSOLUTE AUTO 0.01 K/uL (0.04-0.40); EOSINOPHILS PERCENT AUTO 0.2 % (1.0-5.0); HEMATOCRIT 37.3 % (40.0-54.0); HEMOGLOBIN 12.7 g/dL (13.0-18.0); LYMPHOCYTES ABSOLUTE AUTO 1.02 K/uL (1.50-4.00); LYMPHOCYTES PERCENT AUTO 16.7 % (20.0-40.0); MEAN CORPUSCULAR HEMOGLOBIN 32.9 pg (27.0-32.0); MEAN CORPUSCULAR VOLUME 97 fL (76-96); MEAN PLATELET VOLUME 10.9 fL (6.0-10.0); MONOCYTES ABSOLUTE AUTO 0.82 K/uL (0.20-0.80); MONOCYTES PERCENT AUTO 13.4 % (3.0-10.0); NEUTROPHILS ABSOLUTE AUTO 4.24 K/uL (2.00-7.50); NEUTROPHILS PERCENT AUTO 69.5 % (45.0-70.0); PLATELET COUNT,PLT 99 K/uL (150-400); RED BLOOD CELL COUNT 3.86 M/uL (4.50-6.50); RED CELL DISTRIBUTION WIDTH 12.6 % (11.0-16.0); WHITE BLOOD CELL COUNT,WBC 6.1 K/uL (4.0-11.0)
[2024-09-08 14:31] LABS: ANION GAP 11.1 mmol/L (5.0-15.0); BUN/CREATININE RATIO 16.8 (6-25); CARBON DIOXIDE,CO2 28.4 mmol/L (21.0-32.0); CREATININE 1.01 mg/dL (0.70-1.30); POTASSIUM,K 3.5 mmol/L (3.5-5.1)
[2024-09-08 14:32] LABS: CALCIUM 9.2 mg/dL (8.5-10.1); EST CRCL DRUG DOSING (CG) 53.89 mL/min
[2024-09-08 14:59] LABS: INFLUENZA A NAA NEGATIVE (NEGATIVE); INFLUENZA B NAA NEGATIVE (NEGATIVE); RESPIRATORY SYNCYTIAL VIR NAA POSITIVE (NEGATIVE)
[2024-09-08] MEDS: Albuterol/Ipratropium 3.0-0.5 MG/3 ML Neb Soln NEB ONE (15:09)
[2024-09-08 15:15] LABS: CORONAVIRUS COVID-19 NAA NEGATIVE (NEGATIVE)
[2024-09-08] MEDS ORDERED: Magnesium Hydroxide 400 MG/5 ML Susp 30 ML Cup PO PRN (15:27)
[2024-09-08] MEDS ORDERED: Acetaminophen 325 MG Tab PO PRN (15:27)
[2024-09-08 16:40] VITALS: BP 125/68
== END 2024-09-08 16:00 | disposition home or self-care (01) ==
LOC: LB.ED 13:04
DX: J12.1 Respiratory syncytial virus pneumonia (principal); I10 Essential (primary) hypertension; E78.00 Pure hypercholesterolemia, unspecified; Z95.5 Presence of coronary angioplasty implant and graft; Z79.02 Long term (current) use of antithrombotics/antiplatelets; Z79.899 Other long term (current) drug therapy
CPT/HCPCS: 0241U; 36415; 71046; 80048; 85025; 94640; 99285; J7620

== ENCOUNTER 2024-11-23 08:08 | Emergency (ER) | payer OTHER ==
[2024-11-23 09:10] VITALS: BP 102/46; PULSE 66
== END 2024-11-23 09:38 | disposition home or self-care (01) ==
LOC: LB.ED 08:08
DX: F51.01 Primary insomnia (principal); E78.00 Pure hypercholesterolemia, unspecified; I10 Essential (primary) hypertension; Z95.5 Presence of coronary angioplasty implant and graft; F17.210 Nicotine dependence, cigarettes, uncomplicated; Z79.02 Long term (current) use of antithrombotics/antiplatelets; Z79.899 Other long term (current) drug therapy
CPT/HCPCS: 99283